=== PATIENT | female | born 1940 | race Asian ===

== ENCOUNTER 2017-07-16 11:12 | Outpatient (CLI) | payer MEDICARE ==
[2017-07-16 17:46] LABS: BASOPHILS # (AUTO) 0.1 10^3/uL (0.0-0.1); BASOPHILS % (AUTO) 0.8 %; EOSINOPHILS # (AUTO) 0.2 10^3/uL (0.0-0.7); EOSINOPHILS % (AUTO) 2.8 %; HCT - HEMATOCRIT 46.7 % (37.0-47.0); HGB - HEMOGLOBIN 15.4 g/dL (12.0-16.0); LYMPHOCYTES # (AUTO) 1.9 10^3/uL (1.5-3.5); LYMPHOCYTES % (AUTO) 28.6 %; MEAN CORPUSCULAR HEMOGLOBIN 29.5 pg (27.0-31.0); MEAN CORPUSCULAR HGB CONC 32.9 g/dL (32.0-36.0); MEAN CORPUSCULAR VOLUME 89.5 fL (81.0-99.0); MEAN PLATELET VOLUME 9.1 fL (7.9-10.8); MONOCYTES # (AUTO) 0.5 10^3/uL (0.0-1.0); MONOCYTES % (AUTO) 7.7 %; NEUTROPHILS # (AUTO) 4.1 10^3/uL (1.5-6.6); NEUTROPHILS % (AUTO) 60.1 %; RED BLOOD COUNT 5.21 10^6/uL (4.20-5.40); RED CELL DISTRIBUTION WIDTH 13.7 % (12.0-15.0); UNCORRECTED WHITE BLOOD COUNT 6.7 x10^3/uL; WHITE BLOOD COUNT 6.7 x10^3/uL (4.8-10.8)
[2017-07-16 17:57] LABS: HEMOGLOBIN A1C 0.73 g/dL
[2017-07-16 19:14] LABS: ALBUMIN/GLOBULIN RATIO 1.4 (1.0-2.2); BILIRUBIN,TOTAL 0.8 mg/dL (0.2-1.0); BUN - BLOOD UREA NITROGEN 12 mg/dL (6-20); CALCIUM 8.6 mg/dL (8.5-10.3); CARBON DIOXIDE - CO2 24 mmol/L (21-32); CHLORIDE 104 mmol/L (101-111); CHOL/HDL RATIO 3.9 (<4.4); CHOLESTEROL 239 mg/dL; CREATININE 0.6 mg/dL (0.4-1.0); GFR - MDRD 97 (>89); GLUCOSE 106 mg/dL (70-100); HDL CHOLESTEROL 61 mg/dL; LDL/HDL RATIO 2.6 (<4.4); POTASSIUM 3.5 mmol/L (3.5-5.0); SODIUM 137 mmol/L (135-145); TOTAL PROTEIN 7.3 g/dL (6.7-8.2); TRIGLYCERIDES 109 mg/dL; VLDL CHOLESTEROL 22 mg/dL
== END 2017-07-16 11:13 | disposition home or self-care (01) ==
LOC: LAB.F 11:12
PROVIDERS: ATTEND Internal Medicine
DX: I10 Essential (primary) hypertension (principal); R73.01 Impaired fasting glucose; Z79.899 Other long term (current) drug therapy
CPT/HCPCS: 36415; 80053; 80061; 83036; 85025

== ENCOUNTER 2018-06-06 16:10 | Emergency (ER) | payer MEDICARE ==
[2018-06-06] MEDS ORDERED: amLODIPine 5 MG TABLET PO STA (17:29)
--- NOTE | 2018-06-06 17:33 | ED Physician Documentation ---
History of Present Illness - Stated complaint Stated Complaint: HIGH BP - Chief complaint Chief Complaint: Cardiac - Additonal information Additional information: hx from pt 77 female hx HTN on amlodopine 2.5 and atenolol 25 for along time but since amlodopine company changed a while back she has had more difficulty controlling her BP has been high for 2 days now no sx except eye pressure - no JIMENEZ numbness weakness vision loss no CP or palp no abd pain no NVD has been complaint with meds no dose change called nurse line to see if she could double her dose and was advised to come to ED Review of Systems Constitutional: denies: Fever, Chills Cardiac: denies: Chest pain / pressure Respiratory: denies: Dyspnea GI: denies: Abdominal Pain : denies: Dysuria Neurologic: denies: Focal weakness, Numbness, Headache PD PAST MEDICAL HISTORY - Past Medical History Past Medical History: No Cardiovascular: Hypertension Respiratory: None Neuro: None Endocrine/Autoimmune: None GI: None 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 : Other HEENT: None Psych: None Musculoskeletal: None Derm: None Other Past Medical History: Interstitial cystitis - Past Surgical History Ortho: Spine surgery /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: 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 - Present Medications Home Medications: Ambulatory Orders Medication Instructions Recorded Confirmed Amlodipine Besylate [Norvasc] 2.5 mg 06/06/18 Atenolol 25 mg 06/06/18 Pentosan Polysulfate Sodium 100 mg 06/06/18 [Elmiron] - Allergies Allergies/Adverse Reactions: Allergies Allergy/AdvReac Type Severity Reaction Status Date / Time Unable to Assess Allergy Verified 06/06/18 16:19 - Social History Does the pt smoke?: No Smoking Status: Never smoker Does the pt drink ETOH?: Yes Does the pt have substance abuse?: No - Immunizations Immunizations are current?: Yes - POLST Patient has POLST: No PD ED PE NORMAL - Vitals Vital signs reviewed: Yes - General General: Alert and oriented X 3 - HEENT HEENT: PERRL, EOMI, Other (unable to vis fundi 2/2 pupillary constiction) - Neck Neck: Supple, no meningeal sign - Cardiac Cardiac: RRR - Respiratory Respiratory: No respiratory distress, Clear bilaterally - Abdomen Abdomen: Soft, Non tender - Neuro Neuro: Alert and oriented X 3, No motor deficit, Normal speech Eye Opening: Spontaneous Motor: Obeys Commands Verbal: Oriented GCS Score: 15 Results - Vitals Vitals: Vital Signs - 24 hr 06/06/1818 06/06/18 16:16 17:30 18:10 Temperature 36.3 C L Heart Rate 77 68 63 Respiratory 18 16 16 Rate Blood Pressure 203/80 H 188/87 H 209/95 H O2 Saturation 100 96 100 06/06/18 19:02 Temperature Heart Rate 70 Respiratory 14 Rate Blood Pressure 203/86 H O2 Saturation 100 Oxygen O2 Source Room air - EKG (time done) 1741 Rate: Rate (enter#) (63) Rhythm: NSR [place]: Normal Intervals: Normal GA Ischemia: Normal ST segments - Labs Labs: Laboratory Tests 06/06/18 06/06/18 06/06/18 17:28 17:55 17:55 WBC 6.4 RBC 4.98 Hgb 14.7 Hct 44.8 MCV 89.9 MCH 29.4 MCHC 32.7 RDW 14.0 Plt Count 198 MPV 8.5 Neut # (Auto) 3.4 Lymph # (Auto) 2.1 [place] # (Auto) 0.6 Eos # (Auto) 0.3 Baso # (Auto) 0.1 Absolute Nucleated RBC 0.00 Nucleated RBC % 0.1 Sodium 139 Potassium 3.4 L Chloride 102 Carbon Dioxide 26 Anion Gap 11.0 BUN 15 Creatinine 0.7 Estimated GFR (MDRD) 81 L Glucose 113 H Calcium 9.1 Troponin I < 0.04 PD MEDICAL DECISION MAKING - ED course ED course: PE EKG labs indicate no end organ damage but BP actually went up after double dose of amlodopine HR still 70 will try double dose of atenolol then plan to dc on increased dose pt prefers to just go home now on her increased dose of atenolol and monitor her BP and HR and fup PMD given no sx or end organ damage, this seems reasonable as it may take quite a while to start working - Sepsis Event Vital Signs: Vital Signs - 24 hr 06/06/1818 06/06/18 16:16 17:30 18:10 Temperature 36.3 C L Heart Rate 77 68 63 Respiratory 18 16 16 Rate Blood Pressure 203/80 H 188/87 H 209/95 H O2 Saturation 100 96 100 06/06/18 19:02 Temperature Heart Rate 70 Respiratory 14 Rate Blood Pressure 203/86 H O2 Saturation 100 Oxygen O2 Source Room air Departure - Departure Disposition: Home, Self Care Clinical Impression: Hypertension Qualifiers: Hypertension type: unspecified Qualified Code(s): I10 - Essential (primary) hypertension Condition: Good Instructions: ED Hypertension Conf Out Of Control Follow-Up: Ric Vences MD [Primary Care Provider] - Comments: Your blood pressure was very high today Thankfully there was no evidence of acute injury due to the high pressure. Recommend your increase your atenolol dose to 50 mg daily Given the severe degree of hypertension today, please follow up with your PMD for a recheck Friday and for consideration of further testing to determine why your pressure is so high (for instance ultrasound of the renal arteries) Please keep a log of your blood pressure and of your heart rates and take that to your follow up appointment. If your heart rate is less than 50, go back to your old dosing Return if worse (severe headache, chest pain, weakness or numbness, vision changes etc)
[2018-06-06 18:02] LABS: BASOPHILS # (AUTO) 0.1 10^3/uL (0.0-0.1); EOSINOPHILS # (AUTO) 0.3 10^3/uL (0.0-0.7); EOSINOPHILS % (AUTO) 4.7 %; HGB - HEMOGLOBIN 14.7 g/dL (12.0-16.0); LYMPHOCYTES # (AUTO) 2.1 10^3/uL (1.5-3.5); LYMPHOCYTES % (AUTO) 32.7 %; MEAN CORPUSCULAR HEMOGLOBIN 29.4 pg (27.0-31.0); MEAN CORPUSCULAR HGB CONC 32.7 g/dL (32.0-36.0); MEAN CORPUSCULAR VOLUME 89.9 fL (81.0-99.0); MEAN PLATELET VOLUME 8.5 fL (7.9-10.8); MONOCYTES # (AUTO) 0.6 10^3/uL (0.0-1.0); MONOCYTES % (AUTO) 8.6 %; NEUTROPHILS # (AUTO) 3.4 10^3/uL (1.5-6.6); PLT - PLATELET COUNT 198 10^3/uL (130-450); RED BLOOD COUNT 4.98 10^6/uL (4.20-5.40); WHITE BLOOD COUNT 6.4 x10^3/uL (4.8-10.8)
[2018-06-06 18:18] LABS: CALCIUM 9.1 mg/dL (8.5-10.3); CREATININE 0.7 mg/dL (0.4-1.0)
[2018-06-06] MEDS ORDERED: ATENOLOL 25 MG TABLET PO STA (19:10)
[2018-06-06 19:31] VITALS: BP 200/88
== END 2018-06-06 19:32 | disposition home or self-care (01) ==
LOC: ED 16:10
DX: I10 Essential (primary) hypertension (principal)
CPT/HCPCS: 36415; 80048; 84484; 85025; 93005; 99283; A9270

== ENCOUNTER 2018-08-07 10:28 | Outpatient (CLI) | payer MEDICARE ==
--- NOTE | 2018-08-10 09:26 | DEXA Report ---
Reason: SCREENING FOR OSTEOPOROSIS Procedure Date: 08/07/2018 Accession Number: [id number] / [id number] Procedure: DEX - Dexa Spine and/or Hip CPT Code: FULL RESULT: EXAM: Dexa Spine and/or Hip DATE: 08/07/2018 11:02 AM CLINICAL HISTORY: SCREENING FOR OSTEOPOROSIS TECHNIQUE: Dual energy x-ray absorptiometry (DXA) was performed on a [employer] System. Regions measured are the AP Spine, femoral neck, and if needed forearm. COMPARISON: None. In accordance with the International Society for Clinical Densitometry (ISCD) guidelines, data from previous exams may be reanalyzed using current recommendations and techniques. This is done to allow a more accurate basis for comparison with the current study. FINDINGS: The data for the lumbar spine is as follows: BMD (g/cm/cm) T-SCORE Z-SCORE REGION L1 1.029 -0.8 0.9 L2 1.110 -0.7 1.0 L3 1.311 0.9 2.6 L4 1.444 2.0 3.7 TOTAL 1.225 0.4 2.1 NOTE: All evaluable vertebrae are used for classification The data for the hip is as follows: BMD (g/cm/cm) T-SCORE Z-SCORE REGION Neck 0.952 -0.6 1.4 TOTAL 1.131 1.0 2.9 NOTE: The femoral neck or total proximal femur, whichever is lowest, is used for classification. * Denotes significant change at the 95% confidence level. Denotes dissimilar scan types or analysis methods. IMPRESSION: THE WHO CLASSIFICATION BASED ON THE INTERNATIONAL REFERENCE STANDARD IS NORMAL. THE FRACTURE RISK IS NOT INCREASED. RECOMMENDATION: Patients with diagnosis of osteoporosis or osteopenia should have regular bone mineral density assessment. For those eligible for Medicare, routine testing is allowed once every 2 years. Testing frequency can be increased for patients who have rapidly progressing disease or for those who are receiving medical therapy to restore bone mass. COMMENT: World Health Organization (WHO) definitions for osteoporosis and osteopenia: NORMAL BMD: T-score at -1.0 or higher, fracture risk is low OSTEOPENIA BMD: T-score between -1.0 and -2.5, fracture risk is increased. OSTEOPOROSIS BMD: T-score at -2.5 or lower, fracture risk is high. National Osteoporosis Foundation recommends: 1. Obtain adequate dietary calcium (at least 1200 mg per day) and vitamin D (400-800 international units per day). 2. Participate, as appropriate, in regular weightbearing and muscle-strengthening exercise. 3. Avoid tobacco use and reduce alcohol and caffeine intake. 4. For more detailed information see the website at www.NOF.org.
== END 2018-08-07 10:29 | disposition home or self-care (01) ==
LOC: DI 10:28
PROVIDERS: ATTEND Physician Assistant
DX: Z13.820 Encounter for screening for osteoporosis (principal)
CPT/HCPCS: 77080

== ENCOUNTER 2018-10-02 13:48 | Outpatient (CLI) | payer MEDICARE ==
--- NOTE | 2018-10-04 00:44 | XRAY Report ---
Reason: PAIN IN RIGHT KNEE Procedure Date: 10/02/2018 Accession Number: [id number] / [id number] Procedure: XR - Knee 3 View RT CPT Code: FULL RESULT: EXAM: RIGHT KNEE RADIOGRAPHY EXAM DATE: 10/02/2018 01:58 PM. CLINICAL HISTORY: PAIN IN RIGHT KNEE. COMPARISON: None. TECHNIQUE: 3 views. FINDINGS: Bones: No evidence for acute fracture. There appears to be a small osseous cyst measuring 7 mm at the distal femur intertrochanteric notch. Joints: Normal. No effusion. No subluxations. Soft Tissues: Normal. No soft tissue swelling. Small calcification at the anterior aspect of the femorotibial joint. IMPRESSION: No acute findings. RADIA
== END 2018-10-02 13:49 | disposition home or self-care (01) ==
LOC: DI 13:48
PROVIDERS: ATTEND Nurse Practitioner Family
DX: M25.561 Pain in right knee (principal)

== ENCOUNTER 2019-11-02 17:06 | Emergency (ER) | payer MEDICARE ==
[2019-11-02 18:13] LABS: BASOPHILS # (AUTO) 0.1 10^3/uL (0.0-0.1); BASOPHILS % (AUTO) 0.8 %; EOSINOPHILS # (AUTO) 0.3 10^3/uL (0.0-0.7); EOSINOPHILS % (AUTO) 3.5 %; HGB - HEMOGLOBIN 15.7 g/dL (12.0-16.0); LYMPHOCYTES # (AUTO) 1.9 10^3/uL (1.5-3.5); LYMPHOCYTES % (AUTO) 21.8 %; MEAN CORPUSCULAR HEMOGLOBIN 30.1 pg (27.0-31.0); MEAN CORPUSCULAR HGB CONC 32.6 g/dL (32.0-36.0); MEAN CORPUSCULAR VOLUME 92.1 fL (81.0-99.0); MONOCYTES # (AUTO) 0.7 10^3/uL (0.0-1.0); MONOCYTES % (AUTO) 7.9 %; NEUTROPHILS # (AUTO) 5.6 10^3/uL (1.5-6.6); NEUTROPHILS % (AUTO) 65.6 %; PLT - PLATELET COUNT 203 10^3/uL (130-450); RED BLOOD COUNT 5.22 10^6/uL (4.20-5.40); RED CELL DISTRIBUTION WIDTH 12.7 % (12.0-15.0); WHITE BLOOD COUNT 8.6 x10^3/uL (4.8-10.8)
[2019-11-02 18:25] LABS: ALBUMIN 4.4 g/dL (3.2-5.5); ALBUMIN/GLOBULIN RATIO 1.4 (1.0-2.2); BILIRUBIN,TOTAL 0.6 mg/dL (0.2-1.0); CALCIUM 9.2 mg/dL (8.5-10.3); CREATININE 0.8 mg/dL (0.4-1.0); TOTAL PROTEIN 7.6 g/dL (6.7-8.2)
--- NOTE | 2019-11-02 19:18 | ED Physician Documentation ---
PD HPI SKIN - Stated complaint Stated Complaint: PX/RED AROUND [place]LLY [place]TON - Chief complaint Chief Complaint: Abd Pain - History obtained from History obtained from: Patient - History of Present Illness Timing - onset: Today Timing - duration: Days (1) Timing - details: Abrupt onset, Still present Location: Abdomen (umbilical area) Quality / character: Painful (tender to the touch), Discolored (red). No: Draining Associated symptoms: No: Fever, Myalgias, Abd pain (just local skin tenderness), N/V/D Contributing factors: No: Recent illness Similar symptoms before: Has not had sx before Recently seen: Clinic (seen by PCP today and was referred to ER for concern of abscess or deeper layer infection.) Review of Systems Constitutional: denies: Fever, Chills GI: denies: Abdominal Swelling, Nausea, Vomiting, Diarrhea Skin: reports: Lesions (just the redness of the umbilical area today) PD PAST MEDICAL HISTORY - Past Medical History Cardiovascular: Hypertension Respiratory: None Neuro: None Endocrine/Autoimmune: None GI: None 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 : Other HEENT: None Psych: None Musculoskeletal: None Derm: None - Past Surgical History Ortho: Spine surgery /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: 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 - Present Medications Home Medications: Ambulatory Orders Medication Instructions Recorded Confirmed Amlodipine Besylate [Norvasc] 2.5 mg 06/06/18 Pentosan Polysulfate Sodium 100 mg 06/06/18 [Elmiron] atenoloL [Atenolol] 25 mg 06/06/18 Mupirocin 1 applic TP TID #15 g 11/02/19 Sulfamethox/Trimeth 800/160 1 each PO BID #14 tablet 11/02/19 [Bactrim Ds 800/160] - Allergies Allergies/Adverse Reactions: Allergies Allergy/AdvReac Type Severity Reaction Status Date / Time codeine Allergy Unknown Verified 11/02/19 17:26 tetracycline Allergy Unknown Verified 11/02/19 17:26 - Social History Does the pt smoke?: No Smoking Status: Never smoker Does the pt drink ETOH?: Yes Does the pt have substance abuse?: No - Immunizations Immunizations are current?: Yes - POLST Patient has POLST: No PD ED PE NORMAL - Vitals Vital signs reviewed: Yes - General General: Alert and oriented X 3, No acute distress, Well developed/nourished - Neck Neck: Supple, no meningeal sign, No adenopathy - Cardiac Cardiac: RRR, No murmur - Respiratory Respiratory: Clear bilaterally - Abdomen Abdomen: Normal bowel sounds, Soft, Non distended, No organomegaly, Other (the umbilicus has local redness without ulceration. There is mild rounded of redness about 1-2 cm in all directions, with local mild swelling. Bedside U/S showed inflammatory changes in upper layer of fatty tissue, but no signs of abscess formation. ) Results - Vitals Vitals: Vital Signs - 24 hr 11/02/19 11/02/19 17:26 19:44 Temperature 36.9 C 36.8 C Heart Rate 75 72 Respiratory 18 18 Rate Blood Pressure 174/82 H 187/89 H O2 Saturation 98 100 Oxygen O2 Source Room air - Labs Labs: Laboratory Tests 11/02/19 11/02/19 18:08 18:08 WBC 8.6 RBC 5.22 Hgb 15.7 Hct 48.1 H MCV 92.1 MCH 30.1 MCHC 32.6 RDW 12.7 Plt Count 203 MPV 10.0 Neut # (Auto) 5.6 Lymph # (Auto) 1.9 [place] # (Auto) 0.7 Eos # (Auto) 0.3 Baso # (Auto) 0.1 Absolute Nucleated RBC 0.00 Nucleated RBC % 0.0 Sodium 138 Potassium 3.6 Chloride 102 Carbon Dioxide 25 Anion Gap 11.0 BUN 16 Creatinine 0.8 Estimated GFR (MDRD) 69 L Glucose 122 H Calcium 9.2 Total Bilirubin 0.6 AST 19 ALT 14 Alkaline Phosphatase 57 Total Protein 7.6 Albumin 4.4 Globulin 3.2 Albumin/Globulin Ratio 1.4 Lipase 33 PD MEDICAL DECISION MAKING - ED course Complexity details: considered differential (local skin infection with small ring of cellulitis. No signs of deeper infection nor abscess on bedside U/S. Will treat with oral and topical abx, particularly for staph coverage. ), d/w patient Departure - Departure Disposition: 01 Home, Self Care Clinical Impression: Cellulitis of periumbilical region Condition: Stable Record reviewed to determine appropriate education?: Yes Instructions: ED Infec Skin Cellulitis Follow-Up: [facility] [Provider Group] Prescriptions: Mupirocin 1 applic TP TID #15 g Sulfamethox/Trimeth 800/160 [Bactrim Ds 800/160] 1 each PO BID #14 tablet Comments: There is no signs of abscess or fluid collection under the area of the red skin. Clean the area with soap and water 2-3 times a day and apply mupirocin topical antibiotic. It is okay to go swimming and wash and shower. Bactrim antibiotic twice daily for a week for the infection. Recheck if not improving well over the next 2 to 3 days and recheck sooner if it is worsening significantly. Discharge Date/Time: 11/02/19 19:49
[2019-11-02] MEDS ORDERED: MUPIROCIN 2% OINT 1 GM TOP STA (19:33)
[2019-11-02] MEDS ORDERED: SULFAMETH/TRIMETH DS 800/160 MG TABLET PO STA (19:33)
[2019-11-02 19:45] VITALS: BP 187/89
== END 2019-11-02 19:49 | disposition home or self-care (01) ==
LOC: ED 17:06
DX: L03.316 Cellulitis of umbilicus (principal); I10 Essential (primary) hypertension
CPT/HCPCS: 36415; 80053; 83690; 85025; 99283; 99284; A9270

== ENCOUNTER 2022-11-18 13:49 | Outpatient (CLI) | payer MEDICARE ==
--- NOTE | 2022-11-18 18:50 | XRAY Report ---
PROCEDURE: Chest 2 View X-Ray INDICATIONS: ACUTE UPPER RESPIRATORY INFECTIONS,UNSPECIFIED TECHNIQUE: 2 views of the chest were acquired. COMPARISON: None. FINDINGS: Surgical changes and devices: None. Lungs and pleura: No pleural effusions or pneumothorax. Lungs are clear. Mediastinum: Mediastinal contours are normal. Heart size is normal. Bones and chest wall: No suspicious bony abnormalities. Soft tissues appear unremarkable. IMPRESSION: Normal two-view chest x-ray Reviewed by: Driss Stout MD on 11/18/2022 5:49 PM [facility] Approved by: Driss Stout MD on 11/18/2022 5:49 PM [facility] Station ID: [id number]
== END 2022-11-18 13:50 | disposition home or self-care (01) ==
LOC: DI 13:49
PROVIDERS: ATTEND Internal Medicine
DX: J06.9 Acute upper respiratory infection, unspecified (principal)

== ENCOUNTER 2023-05-23 09:46 | Outpatient (CLI) | payer MEDICARE ==
--- NOTE | 2023-05-23 11:43 | XRAY Report ---
PROCEDURE: Lumbar Spine 2 View INDICATIONS: LOW BACK PAIN,UNSPECIFIED TECHNIQUE: 2 views of the lumbar spine were acquired. COMPARISON: None. FINDINGS: Bones: 5 [id number] vertebrae are present. There is normal bony alignment. No vertebral body compression fractures. No suspicious bony lesions. Generalized decreased osseous mineralization pre sent. Disc space narrowing and hypertrophic Facet joints noted in the lower lumbar spine Soft tissues: Overlying bowel gas pattern is normal. No suspicious soft tissue calcifications. Cho lecystectomy surgical clips noted in the right upper quadrant. 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 Moderate fecal debris in the right colon without obstruction Reviewed by: Driss Stout MD on 05/23/2023 10:41 AM [facility] Approved by: Driss Stout MD on 05/23/2023 10:41 AM [facility] Station ID: [id number]
--- NOTE | 2023-05-23 13:03 | XRAY Report ---
PROCEDURE: Ankle 3 View LT INDICATIONS: PAIN OF LEFT ANKLE JOINT TECHNIQUE: 3 views of the ankle were acquired. COMPARISON: None. FINDINGS: Bones: No fractures or dislocations. Ankle mortise is normally aligned. No suspicious bony lesions . Soft tissues: No tibiotalar joint effusion. Achilles tendon appears normal. IMPRESSION: No acute bony abnormality. If clinical symptoms persist or there is clinical suspicion for internal d erangement, consider CT or MRI. Reviewed by: Davonte Walker MD on 05/23/2023 1:01 PM PDT Approved by: Davonte Walker MD on 05/23/2023 1:01 PM PDT Station ID: [id number]
== END 2023-05-23 09:47 | disposition home or self-care (01) ==
LOC: DI 09:46
PROVIDERS: ATTEND Physician Assistant
DX: M25.572 Pain in left ankle and joints of left foot (principal); M47.816 Spondylosis without myelopathy or radiculopathy, lumbar region; M51.36 Other intervertebral disc degeneration, lumbar region; M47.814 Spondylosis without myelopathy or radiculopathy, thoracic region; M51.34 Other intervertebral disc degeneration, thoracic region

== ENCOUNTER 2023-11-21 09:36 | Outpatient (CLI) | payer MEDICARE ==
--- NOTE | 2023-11-21 10:19 | Sleep Patient Instructions ---
Sleep Center Visit Summary - Patient Visit Information Reason for Visit: Initial consult for evaluation of sleep disordered breathing and other sleep issues. - Patient Instructions Instructions Attached: Sleep Study Additional Instructions: You will be completing a sleep study, either an in-lab polysomnography (PSG) or home sleep study (HST). You will follow-up in the sleep care office after the sleep study is completed to hear the results and talk about therapy, if needed. You will be called by our office staff to schedule this appointment, but you may contact us with any questions. - Clinic Information Contact: [facility] [address] [place] [address] [email or web address] T: [phone]
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
[2023-11-21 10:30] VITALS: BP 162/82; O2SAT 97
== END 2023-11-21 09:37 | disposition home or self-care (01) ==
LOC: SC 09:36
PROVIDERS: ATTEND Nurse Practitioner Family
DX: G47.33 Obstructive sleep apnea (adult) (pediatric) (principal); E66.3 Overweight; Z68.27 Body mass index [BMI] 27.0-27.9, adult
CPT/HCPCS: 99203; G0463; 99212

== ENCOUNTER 2023-12-09 08:18 | Outpatient (CLI) | payer MEDICARE ==
[2023-12-09 15:00] LABS: BASOPHILS # (AUTO) 0.1 10^3/uL (0.0-0.1); BASOPHILS % (AUTO) 1.1 %; EOSINOPHILS # (AUTO) 0.3 10^3/uL (0.0-0.7); EOSINOPHILS % (AUTO) 5.4 %; HCT - HEMATOCRIT 45.3 % (37.0-47.0); HGB - HEMOGLOBIN 14.4 g/dL (12.0-16.0); LYMPHOCYTES # (AUTO) 2.1 10^3/uL (1.5-3.5); LYMPHOCYTES % (AUTO) 37.2 %; MEAN CORPUSCULAR HEMOGLOBIN 29.5 pg (27.0-31.0); MEAN CORPUSCULAR HGB CONC 31.8 g/dL (32.0-36.0); MEAN CORPUSCULAR VOLUME 92.8 fL (81.0-99.0); MEAN PLATELET VOLUME 10.3 fL (7.9-10.8); MONOCYTES # (AUTO) 0.6 10^3/uL (0.0-1.0); MONOCYTES % (AUTO) 10.6 %; NEUTROPHILS # (AUTO) 2.5 10^3/uL (1.5-6.6); NEUTROPHILS % (AUTO) 45.5 %; PLT - PLATELET COUNT 234 10^3/uL (130-450); RED BLOOD COUNT 4.88 10^6/uL (4.20-5.40); RED CELL DISTRIBUTION WIDTH 12.6 % (12.0-15.0); WHITE BLOOD COUNT 5.6 x10^3/uL (4.8-10.8)
[2023-12-09 15:54] LABS: ALBUMIN 3.9 g/dL (3.2-5.5); ALBUMIN/GLOBULIN RATIO 1.4 (1.0-2.2); ALKALINE PHOSPHATASE 43 IU/L (42-121); ALT ALANINE AMINOTRANSFERASE 10 IU/L (10-60); AST ASPARTATE AMINOTRANSFERASE 17 IU/L (10-42); BILIRUBIN,TOTAL 0.7 mg/dL (0.2-1.0); BUN - BLOOD UREA NITROGEN 16 mg/dL (6-20); CALCIUM 9.2 mg/dL (8.5-10.3); CARBON DIOXIDE - CO2 29 mmol/L (21-32); CHLORIDE 102 mmol/L (101-111); CHOL/HDL RATIO 4.7 (<4.4); CHOLESTEROL 257 mg/dL; CREATININE 0.7 mg/dL (0.6-1.3); GFR - MDRD 80 (>89); GLUCOSE 113 mg/dL (74-104); HDL CHOLESTEROL 55 mg/dL; LDL CHOLESTEROL,CALCULATED 156 mg/dL; LDL/HDL RATIO 2.8 (<4.4); POTASSIUM 3.6 mmol/L (3.5-4.5); SODIUM 136 mmol/L (135-145); TOTAL PROTEIN 6.6 g/dL (6.4-8.9); TRIGLYCERIDES 232 mg/dL (48-352); VLDL CHOLESTEROL 46 mg/dL
[2023-12-09 16:10] LABS: THYROID STIMULATING HORMONE 3.19 uIU/mL (0.34-5.60)
== END 2023-12-09 08:19 | disposition home or self-care (01) ==
LOC: LAB.S 08:18
PROVIDERS: ATTEND Internal Medicine
DX: I10 Essential (primary) hypertension (principal); R73.03 Prediabetes; E23.6 Other disorders of pituitary gland
CPT/HCPCS: 36415; 80053; 80061; 83721; 84443; 85025

== ENCOUNTER 2023-12-16 20:30 | Outpatient (CLI) | payer MEDICARE | END 2023-12-16 20:31 | disposition home or self-care (01) | LOC: SC 20:30 | PROVIDERS: ATTEND Nurse Practitioner Family | DX: G47.33 Obstructive sleep apnea (adult) (pediatric) (principal); G47.61 Periodic limb movement disorder | CPT/HCPCS: 95810 ==

== ENCOUNTER 2023-12-31 09:08 | Outpatient (CLI) | payer MEDICARE ==
--- NOTE | 2023-12-31 09:32 | SLEEP CARE CONSULTATION ---
Information from patient questionnaire entered by Bertha Smith. I have reviewed and concur with the information entered by Bertha Smith. This document represents the service I personally performed and the decisions made by me, Phoebe Early ARNP. History of Present Illness Service Date and Time: 12/31/2023907 Initial [place] Sleepiness Scale score: 9 (10/23/23) Current [place] Sleepiness Scale score: 11 (12/31/23) Additional HPI information: DANIEL NGUYEN returns for follow up and results of the recently performed polysomnography. The sleep study dated 12/16/23 showed mild obstructive sleep apnea with an average AHI of 11.9 and sotero oxygen saturation of 81%. She had moderate PLMs contributing to sleep fragmentation. I explained the pathophysiology behind obstructive sleep apnea. We then spent quite a bit of time discussing different treatment options. For mild obstructive sleep apnea, surgery and oral appliance are alternatives to nasal CPAP therapy but in moderate or severe cases, nasal CPAP is the most effective and reliable treatment. Because apnea is primarily in supine position, then positional management therapy could be effective. Methods discussed such as positioning with pillows, using a T-shirt with tennis balls in the back or commercial products that have a pillow format on back to prevent supine sleep. I reviewed the impact of weight changes on sleep apnea and strongly recommended losing weight. After some discussion, the patient opted to try positional therapy. Patient counseled not drink alcohol less than 4 hours before bedtime as it can increase snoring and apnea. Patient was cautioned about risks of drowsy driving until sleepiness symptoms resolve. Patient denies drowsy driving. Sleep Study - Results Type of Sleep Study: Polysomnography (COMPLETED 12/16/23) Prior sleep studies: Yes Year and Where: 2004? Polysomnography/Home Sleep Study results: IMPRESSION: The quality of the study is good. The patient had slightly reduced sleep efficiency due to several awakenings during the night. The sleep architecture was abnormal for sleep fragmentation and lack of slow wave sleep (N3). Respiratory monitoring showed mild obstructive sleep apnea-hypopnea (AHI = 11.9) associated with frequent arousals, oxyhemoglobin desaturation and mild hypoxia (sotero oxygen saturation of 81%). Baseline oxygen saturation was low-normal at 90%. The respiratory events occurred only during supine sleep (supine AHI = 23.2; non-supine = 0.00). Snore was light to moderate in intensity. There was moderate periodic leg movement of sleep, contributing to the sleep fragmentation. Cardiac rhythm was normal sinus rhythm without significant arrhythmia. No abnormal behavior (parasomnia) observed during the night. Allergies and Home Medications Known drug allergies: Yes (as listed) Drug allergies reviewed: Yes Home medication list reviewed: Yes (potassium) Allergy and home medication list: Allergies codeine Allergy (Verified 12/29/23 09:13) Unknown tetracycline Allergy (Verified 12/29/23 09:13) Unknown Review of Systems Review of systems same as previous: Yes (NO CHANGE) Physical Exam Vital signs obtained and entered by: BERTHA Contreras MA Blood Pressure: 146/72 (LEFT ARM) Cuff size: regular Heart Rate: 55 O2 Saturation: 97 Height: 5 ft 3.75 in Weight: 162 lb Body Mass Index: 28.0 BMI Classification: Overweight Impression and Plan 1. Obstructive Sleep Apnea-Hypopnea Syndrome, mild, with lowest oxygen saturation of 81%. Obviously this is the cause of the patients symptoms of unrefreshed sleep, and excessive daytime sleepiness. Positive pressure therapy could benefit hypertension, borderline diabetes, anxiety and depression. Since patients apnea is primarily in supine position and she says she could not sleep with the CPAP in the past, patient advised to try positional therapy and she ag tasha with plan. She is also advised to lose weight as this will reduce snoring and apnea. Follow up is scheduled in 1-2 months to check effectiveness and if further evaluation indicated. 2. Hypoxemia, mild, with a sotero oxygen saturation of 81% and 84.1 minutes spent under 90%. The baseline oxygen saturation was low normal with an average oxygen saturation of 90%. 3. Periodic limb movement, moderate, that did contribute to fragmentation of the patients sleep. Periodic limb movement of sleep (PLMS) is characterized by episodes of repetitive limb movements that occur during sleep and usually involve the lower limbs. The etiology is unknown. Caffeine can also aggravate PLMS and should be avoided. Sleep hygiene methods can also improve sleep as well as lifestyle changes such as regular exercise. Patient was advised that no treatment is needed at this time. If symptoms increase, then further evaluation is indicated. 4. Overweight, unspecified. Currently patients BMI is 28. Obesity increases the risk of apnea, CPAP pressure requirements and overall health risks especially cardiovascular and diabetes. Thus patient is advised to lose weight. * Positional therapy * Attempt to lose weight. * Avoid alcohol consumption near bedtime. * Avoid supine sleep. * The patient is again cautioned about driving until sleepiness completely resolves. * Return in 1-2 months. I will assess response to therapy at that time. Counseling Topics: Weight loss health impact Follow up with Sleep Care in: 1-2 months (for positional) Visit Type: In Office Time Spent with Patient (minutes): 20 Provider Statement: I spent 100% of the Face to Face Visit with the patient with greater than 50% spent counseling the patient and coordination of care.
[2023-12-31 09:33] VITALS: BP 146/72; O2SAT 97
--- NOTE | 2023-12-31 09:33 | Sleep Patient Instructions ---
Sleep Center Visit Summary - Patient Visit Information Reason for Visit: Sleep study follow-up - Patient Instructions Additional Instructions: You are to start Positional therapy to control your sleep apnea. You may obtain positional belts or other commercial devices online. You may also use pillows to position yourself on your side or a T shirt with balls sewn into the back to help keep you on your side to sleep. We would like to follow up with you in a month to check effectiveness of therapy. Please call office to schedule a follow up appointment in the sleep care office in 1-2 months. - Clinic Information Contact: [facility] [address] [place] [address] [email or web address] T: [phone]
== END 2023-12-31 09:09 | disposition home or self-care (01) ==
LOC: SC 09:08
PROVIDERS: ATTEND Nurse Practitioner Family
DX: G47.33 Obstructive sleep apnea (adult) (pediatric) (principal); R09.02 Hypoxemia; G47.61 Periodic limb movement disorder
CPT/HCPCS: 99213; G0463; 99212

== ENCOUNTER 2024-02-25 14:53 | Outpatient (CLI) | payer MEDICARE ==
--- NOTE | 2024-02-25 15:09 | Sleep Patient Instructions ---
Sleep Center Visit Summary - Patient Visit Information Reason for Visit: Positional therapy follow-up - Patient Instructions Additional Instructions: You were here for follow up of Positional therapy. You will be continued on positional therapy. You should follow up with sleep care in 3 months. You may contact us sooner for any questions or concerns. - Clinic Information Contact: [facility] [address] [place] [id number] [email or web address] T: [phone]
[2024-02-25 15:14] VITALS: BP 149/75; O2SAT 98
--- NOTE | 2024-02-25 15:14 | SLEEP CARE CONSULTATION ---
Information from patient questionnaire entered by Tabitha Smith. I have reviewed and concur with the information entered by Tabitha Smith. This document represents the service I personally performed and the decisions made by me, Phoebe Early ARNP. History of Present Illness Service Date and Time: 02/25/2024 145 Previous diagnosis: Mild, Obstructive Sleep Apnea-Hypopnea Syndrome AHI: 11.9 (on 12/16/23) Reason for follow up: other (2 MONTH F/U POSITIONAL) Prior sleep studies: Yes Year and Where: 2004? Type of Sleep Study: Polysomnography (COMPLETED 12/16/23) HPI additional information: DANIEL NGUYEN was diagnosed to have mild, AHI 11.9, obstructive sleep apnea- hypopnea syndrome and returned today for Positional therapy two month follow-up. Sleep Study - Results Type of Sleep Study: Polysomnography (COMPLETED 12/16/23) Prior sleep studies: Yes Year and Where: 2004? CPAP Compliance Data Compliance data discussion: She has been using a pillow to keep from laying on her back. She thinks she is staying off her back. Subjective On therapy, patient: reports: sleeping better, awakening more refreshed, more rested overall. denies: drowsiness while driving Initial [place] Sleepiness Scale score: 9 (10/23/23) Current [place] Sleepiness Scale score: 12 (02/25/24) Allergies and Home Medications Known drug allergies: Yes (as listed) Drug allergies reviewed: Yes Home medication list reviewed: Yes (no changes) Allergy and home medication list: Allergies codeine Allergy (Verified 02/23/24 10:59) Unknown tetracycline Allergy (Verified 02/23/24 10:59) Unknown Review of Systems Review of systems same as previous: Yes (NO CHANGE) Physical Exam Vital signs obtained and entered by: TABITAH Contreras MA Blood Pressure: 149/75 (LEFT ARM) Cuff size: regular Heart Rate: 58 O2 Saturation: 98 Height: 5 ft 3.75 in Weight: 161 lb 3.2 oz Body Mass Index: 27.8 BMI Classification: Overweight Impression and Plan 1. Obstructive Sleep Apnea-Hypopnea Syndrome, mild. She says when she started positional therapy she noted an improvement of her sleep and feeling rested overall. She says in the last week she has not felt as rested but has been getting up earlier and doing things that she is not normally used to doing. She would like to continue with positional therapy and feels it is more sustainable than trying other things like CPAP. I will have her return in 3 months for re- evaluation. Patient's apnea severity and rationale for treatment to reduce apnea, improve sleep quality and reduce cardiovascular and cerebrovascular events was reviewed. I also reviewed the benefit of consistent non-supine sleep for hypertension, depression/anxiety. 2. Overweight, unspecified. Currently patients BMI is 27.8. Obesity increases the risk of apnea, CPAP pressure requirements and overall health risks especially cardiovascular and diabetes. Thus patient is advised to lose weight. * Continue with positional therapy * Attempt to lose weight * Call this office if any problems * Return for follow up in 3 months, or sooner if concerns arise Counseling Topics: Sleeping position, Weight loss health impact Follow up with Sleep Care in: 3 months Visit Type: In Office Time Spent with Patient (minutes): 12 Provider Statement: I spent 100% of the Face to Face Visit with the patient with greater than 50% spent counseling the patient and coordination of care.
== END 2024-02-25 14:54 | disposition home or self-care (01) ==
LOC: SC 14:53
PROVIDERS: ATTEND Nurse Practitioner Family
DX: G47.33 Obstructive sleep apnea (adult) (pediatric) (principal); E66.3 Overweight; Z68.27 Body mass index [BMI] 27.0-27.9, adult
CPT/HCPCS: 99212; G0463